=== PATIENT | male | born 1980 | race African-American/Black ===

== ENCOUNTER 2020-06-16 06:14 | Day surgery (SDC) | payer BC, OTHER ==
--- NOTE | 2020-06-01 11:43 | HP ---
DATE OF ADMISSION: 06/16/2020 DATE OF DICTATION: 04/27/2020 BRIEF HISTORY: This is a 40-year-old gentleman with a 4-year history of having a left inguinal hernia. Over the ensuing 4 years the hernia has gotten significantly larger and now he wishes to have this repaired. Patient states he has a large lump in his left groin. The lump does not go away. He has had no nausea, no vomiting, no change in bowel habits. Patient states the lump causes him discomfort when he does bending or lifting type activities. PAST MEDICAL HISTORY: He denies coronary artery disease, hypertension, diabetes. PAST SURGICAL HISTORY: None. MEDICATIONS: None. ALLERGIES: None. SOCIAL HISTORY: He does not smoke, does not drink. No history of drug use. PHYSICAL EXAMINATION: Patient examined in the erect and supine position. He has a very large left inguinoscrotal hernia. The hernia in the scrotum is approximately 2/3 the size of my fist. The left testicle is not well evaluated due to its chronically incarcerated nature and the inguinoscrotal component of the hernia. I was able to reduce part of the hernia, but not completely. On the right side there is no obvious hernia, some laxity noted. The right scrotum and testicle are within normal limits. Incidental finding of an umbilical hernia that is chronically incarcerated is noted. IMPRESSION/PLAN: Chronically incarcerated left inguinoscrotal hernia, chronically incarcerated umbilical hernia. This is a 40-year-old gentleman with a known left inguinal hernia. It started out small 4 years ago and now it is a very large chronically incarcerated left inguinoscrotal hernia. I was able to reduce part of the hernia during this examination, but not completely. The left scrotum and testicle are not well evaluated. At this time I would recommend proceeding with a laparoscopic repair of the left inguinal hernia. At the time of laparoscopy the right side should be examined as well since he could have an occult hernia missed on examination. If a hernia is noted, it will be repaired. If no hernia is seen on the right side, a piece of mesh will be left in the direct inguinal space for reinforcement. With regard to the chronically incarcerated umbilical hernia, this is an incidental finding and no surgical intervention is needed at this time. Due to the generosity in size of the left inguinoscrotal hernia, once this is repaired laparoscopically, this gentleman will most likely develop a postoperative seroma which may or may not resolve with time. If the seroma does not resolve, it will be permanent and this gentleman understands this potential risk and still wants to proceed with a laparoscopic repair. The indications, alternatives and complications of this procedure have been discussed at length. Questions have been answered. Will plan to obtain written consent the day of surgery. Pilar STAUFFER [id number] cc: Shahla Jarrett MD
[2020-06-10 14:43] VITALS: BMI 27.2
--- OUTSIDE RECORDS SUMMARY | 2020-06-16 06:18 | XMS ---
:1980 Author Organization [facility] Support Name Relationship Address Phone DESTINEE STERLING FRIEND [address] [phone] [place] [address] NA, NA OT NA Unavailable - Unavailable Unavailable Unavailable [facility] Unavailable [address] [facility] [place] [address] Re-disclosure Warning The records that you are about to access may contain information from federally- assisted alcohol or drug abuse programs. If such information is present, then the following federally mandated warning applies: This information has been disclosed to you from records protected by federal confidentiality rules (42 CFR part 2). The federal rules prohibit you from making any further disclosure of this information unless further disclosure is expressly permitted by the written consent of the person to whom it pertains or as otherwise permitted by 42 CFR part 2. A general authorization for the release of medical or other information is NOT sufficient for this purpose. The Federal rules restrict any use of the information to criminally investigate or prosecute any alcohol or drug abuse patient.The records that you are about to access may contain highly sensitive health information, the redisclosure of which is protected by Article 27-F of the [facility] Public Health law. If you continue you may haveaccess to information: Regarding HIV / AIDS; Provided by facilities licensed or operated by the [facility] Office of Mental Health; or Provided by the [facility] Office for People With Developmental Disabilities. If such information is present, then the following [facility] mandated warning applies: This information has been disclosed to you from confidential records which are protected by state law. State law prohibits you from making any further disclosure of this information without the specific written consent of the person to whom it pertains, or as otherwise permitted by law. Any unauthorized further disclosure in violation of state law may result in a fine or longterm sentence or both. A general authorization for the release of medical or other information is NOT sufficient authorization for further disclosure. Encounters Encounter Providers Location Date Indications Data Source(s ) Emergency H 04/27/2019 01:53:00 [facility] EDT - 04/27/2019 [facility] 02:18:00 PM EDT Patient discharged. Insurance Providers Payer name Policy type Policy ID Covered Covered libertarian's Policy P jen / Coverage libertarian ID relationship to [employer] orm[employer] type roper BC PPO [id number] SP [id number] [facility] [id number] [facility] PPO [id number] SP [id number] BC EPO [id number] SP [id number] Results ID Date Data Source [id number] 06/12/2020 12:59:00 PM EDT [facility] Name Value Range Interpretation Description Data Sup porting Code Source(s) Document(s ) SARS [facility] coronavirus 2 RNA This lab was ordered by JUNG SMITH and reported by [facility]. Procedure Social History Code Duration Value Status Description Data Source(s ) Smoking 04/27/2019 02:01:00 PM Not Known completed Not Known [facility] EDT [place]
[2020-06-16] MEDS ORDERED: TAMSULOSIN HCL 0.4 MG CAP ONE (06:53)
[2020-06-16] MEDS ORDERED: MIDAZOLAM HCL 2 MG/2 ML SINGLE DOSE VIAL ONE ×2 (07:23→07:28)
[2020-06-16] MEDS ORDERED: DEXAMETHASONE SOD PHOSPHATE/PF 10 MG/ML SDV ONE (07:24)
[2020-06-16] MEDS ORDERED: BUPIVACAINE HCL/PF 0.5% (5 MG/ML) 30 ML VIAL IJ ONE (07:24)
[2020-06-16] MEDS ORDERED: SUCCINYLCHOLINE CHLORIDE 200 MG/10 ML SYRINGE ONE (07:27)
[2020-06-16] MEDS ORDERED: ROCURONIUM BROMIDE 50 MG/5 ML SYRINGE ONE ×3 (07:27→09:22)
[2020-06-16] MEDS ORDERED: PROPOFOL 20 ML ONE ×4 (07:27→09:20)
[2020-06-16] MEDS ORDERED: ONDANSETRON 4 MG/2 ML VIAL ONE ×2 (08:14→09:16)
[2020-06-16] MEDS ORDERED: ceFAZolin SODIUM 1 GM VIAL ONE (08:14)
[2020-06-16] MEDS ORDERED: DEXAMETHASONE SOD PHOSPHATE 4 MG/1 ML VIAL ONE (08:14)
[2020-06-16] MEDS ORDERED: HYDROmorphone HCL/PF 1 MG/ML VIAL ONE (08:22)
[2020-06-16] MEDS ORDERED: ALBUTEROL SO4 HFA INHALER IH ONE (08:26)
[2020-06-16] MEDS ORDERED: GLYCOPYRROLATE 0.2 MG/1 ML VIAL ONE (09:16)
[2020-06-16] MEDS ORDERED: NEOSTIGMINE METHYLSULFATE 0.5 MG/ML - 10 ML MDV ONE (09:16)
[2020-06-16] MEDS ORDERED: ONDANSETRON 4 MG/2 ML VIAL IVPUSH PRN (09:49)
[2020-06-16] MEDS ORDERED: PROMETHAZINE HCL 25 MG/1 ML VIAL IVPUSH PRN (09:49)
[2020-06-16] MEDS ORDERED: oxyCODONE HCL 5 MG TABLET PO PRN (09:49)
--- NOTE | 2020-06-16 09:58 | OP ---
DATE OF OPERATION: 06/16/2020 PREOPERATIVE DIAGNOSIS: Chronically incarcerated left inguinal hernia. POSTOPERATIVE DIAGNOSIS: Chronically incarcerated left indirect inguinal hernia, right direct inguinal hernia. PROCEDURE: Laparoscopic repair of incarcerated left inguinal hernia with mesh, laparoscopic repair of right inguinal hernia with mesh. SURGEON: Bernard Astogra MD SUPERVISOR RECORDS CHANGE: Quinn Ponce DO ANESTHESIA: Milka Whipple MD (general) ESTIMATED BLOOD LOSS: Minimal. SPECIMEN: None. INDICATION FOR PROCEDURE: This is a 40-year-old gentleman with a 4-year history of having a left inguinal hernia. Over this time course the hernia has gotten very large and now extends into his scrotum and he has discomfort. He wished to have this repaired. DESCRIPTION OF PROCEDURE: Patient identified and appropriately positioned on the operating room table. After placement of general anesthesia, the abdomen was prepped and draped in the usual sterile fashion with ChloraPrep. An infraumbilical incision was made, deepened through the subcutaneous tissue. The fascia of the rectus muscle on the left identified, divided sharply, the muscle split. Under direct vision a dissector balloon followed by a structural balloon placed. Also under direct vision a suprapubic 11-mm port placed. The following structures on the left side identified: Pubic tubercle, Ramirez's ligament, inferior epigastric vessels, spermatic cord and lateral abdominal wall. During this dissection he had no direct component. He had a very large chronically incarcerated indirect inguinal hernia. A 5-mm right lower quadrant port placed under direct vision to facilitate dissection of this sac back into the preperitoneal space. This was done with blunt and sharp dissection. Once the sac was reduced, a 5.5 x 6 piece of Versatex mesh was keyholed, placed through the suprapubic port site. The mesh was wrapped around the cord structures laterally to reconstruct the internal ring. Laterally the mesh was anchored to the anterior abdominal wall and lateral abdominal wall. Medially the mesh was anchored to the anterior abdominal wall, pubic tubercle and Ramirez's ligament. Upon completion of the left side, similar structures on the right side identified. On the right side patient was noted to have a direct inguinal hernia containing fat. This was reduced back into the preperitoneal space with blunt dissection. He truly did not have an indirect sac. It was right at the internal ring. There was a moderate size cord lipoma that was reduced. The sac was reduced further back into the preperitoneal space. Another 5.5 x 6 piece of Versatex mesh was keyholed, placed through the suprapubic port site. The mesh was wrapped around the cord structures laterally to reconstruct the internal ring. Laterally the mesh was anchored to the anterior abdominal, pubic tubercle and Ramirez's ligament. There was good overlap in the midline of the 2 pieces of mesh. The preperitoneal space was desufflated under direct vision. The operative field examined, noted to be hemostatic. Ports were removed. Port sites were hemostatic. The fascia at the infraumbilical and supraumbilical port sites were reapproximated with interrupted 0 Vicryl suture. All skin closed with 4-0 subcuticular Biosyn followed by Dermabond. At the conclusion of this case, sponge counts were correct. ATTESTATION: Brief op note handwritten on the preprinted form. [facility] queried prior to giving any narcotics. Pilar STAUFFER [id number] cc: Shahla Jarrett MD
[2020-06-16 11:53] VITALS: TEMP 98.1
[2020-06-16 12:50] VITALS: BP 146/88; PULSE 114
== END 2020-06-16 12:30 | disposition home or self-care (01) ==
LOC: FASU 06:14
PROVIDERS: ATTEND Surgery
PROC: 0YUA4JZ Supplement Bilateral Inguinal Region with Synthetic Substitute, Percutaneous Endoscopic Approach (ICD-10-PCS; principal; 2020-06-16 08:36)
DX: K40.30 Unilateral inguinal hernia, with obstruction, without gangrene, not specified as recurrent (principal); K40.90 Unilateral inguinal hernia, without obstruction or gangrene, not specified as recurrent
CPT/HCPCS: 94760

== ENCOUNTER 2023-10-28 13:44 | Inpatient (IN) | payer BC, OTHER ==
[2023-10-28 13:57] VITALS: BMI 26.6
[2023-10-28] MEDS ORDERED: methylPREDNISolone NA SUCC 125 MG/2 ML VIAL ONE (14:08)
[2023-10-28] MEDS ORDERED: MAGNESIUM SULFATE IN WATER 2 GM/50 ML IVPB IVPB ONE (14:08)
[2023-10-28] MEDS: MAGNESIUM SULF 50% (8.12 MEQ/2 ML-1 GM VIAL) IVPB ONE (14:30)
[2023-10-28] MEDS: methylPREDNISolone NA SUCC 125 MG/2 ML VIAL IVPUSH ONE (14:30)
[2023-10-28] MEDS: ALBUTEROL SO4 2.5/IPRATROPIUM 0.5 INH SOL 3 ML VIAL.NEB. NEB SCH (14:30)
[2023-10-28 14:31] LABS: VENOUS BASE EXCESS 1.3 mmol/L (-2-2); VENOUS O2 SATURATION 60.3 % (70-80); VENOUS PCO2 49.4 mmHg (38-52); VENOUS PH 7.365 (7.310-7.410)
[2023-10-28 14:32] LABS: HEMATOCRIT 43.3 % (35.4-49); HEMOGLOBIN 14.8 GM/dL (11.7-16.9); MCH 29.7 pg (25.7-33.7); MCHC 34.1 g/dl (32.0-35.9); MEAN PLT VOLUME 7.4 fl (7.5-11.1); PLATELET COUNT 242 10^3/uL (134-434); RBC 4.97 M/mm3 (4.00-5.60); WHITE BLOOD COUNT 6.7 K/mm3 (4.0-10.0)
[2023-10-28 14:50] LABS: POTASSIUM 4.3 mmol/L (3.5-5.1)
[2023-10-28 14:52] LABS: CALCIUM 9.2 mg/dL (8.5-10.1)
[2023-10-28 14:53] LABS: ALBUMIN 3.9 g/dl (3.4-5.0); BLOOD UREA NITROGEN 13.4 mg/dL (7-18); MAGNESIUM 1.9 mg/dL (1.8-2.4)
[2023-10-28 14:56] LABS: CREATININE 0.8 mg/dL (0.55-1.3)
[2023-10-28 14:57] LABS: BILIRUBIN,TOTAL 0.5 mg/dL (0.2-1)
[2023-10-28 14:58] LABS: TOT PROT 7.6 g/dl (6.4-8.2)
[2023-10-28 15:14] LABS: ANISOCYTOSIS 0; MACROCYTOSIS 0
[2023-10-28 16:01] LABS: N-TERMINAL BNP 411.7 pg/ml (5-125)
[2023-10-28] MEDS ORDERED: ACETAMINOPHEN INJECTION 100 ML IVPB ONE (17:11)
[2023-10-28] MEDS: ACETAMINOPHEN 1000 MG/100 ML BAG IVPB ONE (17:15)
[2023-10-28] MEDS ORDERED: ALBUTEROL SO4 2.5/IPRATROPIUM 0.5 INH SOL 3 ML VIAL.NEB. NEB PRN (17:33)
[2023-10-28] MEDS: OSELTAMIVIR PHOSPHATE 75 MG CAPSULE PO SCH (21:55)
[2023-10-29 07:45] LABS: INR 1.38 (0.83-1.09); PROTHROMBIN TIME (PATIENT) 15.9 SEC (9.7-13.0)
[2023-10-29 07:46] LABS: ACTIVATED PTT 28.7 SECONDS (25.2-36.5); BASO % 0.1 % (0-2.0); HEMATOCRIT 43.2 % (35.4-49); HEMOGLOBIN 14.5 GM/dL (11.7-16.9); LYMPH % 9.2 % (8-40); MCH 29.4 pg (25.7-33.7); MCHC 33.7 g/dl (32.0-35.9); MEAN CELL VOLUME 87.2 fl (80-96); MEAN PLT VOLUME 8.3 fl (7.5-11.1); MONO % 12.3 % (3.8-10.2); NEUT % 78.4 % (42.8-82.8); PLATELET COUNT 238 10^3/uL (134-434); RBC 4.95 M/mm3 (4.00-5.60); RDW 14.1 % (11.9-15.9); WHITE BLOOD COUNT 6.3 K/mm3 (4.0-10.0)
[2023-10-29 07:56] LABS: POTASSIUM 4.4 mmol/L (3.5-5.1)
[2023-10-29 08:04] LABS: ALBUMIN 3.6 g/dl (3.4-5.0); BLOOD UREA NITROGEN 18.6 mg/dL (7-18); MAGNESIUM 2.4 mg/dL (1.8-2.4)
[2023-10-29 08:05] LABS: BILIRUBIN,TOTAL 0.4 mg/dL (0.2-1); TOT PROT 7.4 g/dl (6.4-8.2)
[2023-10-29 08:07] LABS: CREATININE 0.8 mg/dL (0.55-1.3); PHOSPHOROUS 3.7 mg/dL (2.5-4.9)
[2023-10-29 08:29] VITALS: RESP 18
[2023-10-29] MEDS: PANTOPRAZOLE 40 MG TABLET PO SCH (09:30)
[2023-10-29] MEDS: methylPREDNISolone NA SUCC 40 MG/1 ML VIAL IVPUSH SCH (09:30)
[2023-10-29] MEDS: ENOXAPARIN NA (PORCINE) 40 MG/0.4 ML DISP.SYRIN SQ SCH (09:35)
[2023-10-29 09:36] VITALS: BP 135/105; PULSE 98; TEMP 97.8
== END 2023-10-29 12:52 | disposition home or self-care (01) | DRG 195 ==
LOC: JER 13:44 → JERBED 17:06 → J4W 18:58
PROVIDERS: ADMIT Internal Medicine; ATTEND Internal Medicine
DX: J10.00 Influenza due to other identified influenza virus with unspecified type of pneumonia (principal); R00.0 Tachycardia, unspecified
CPT/HCPCS: 0241U-QW; 36415; 71045-TC-FY; 80053; 82803; 83036; 83735; 83880; 84100; 84484; 85025; 85610; 85730; 93005; 93010; 94660; 99291; J0131